=== PATIENT | female | born 1925 | race Caucasian/White ===

== ENCOUNTER 2016-08-29 14:02 | Inpatient (IN) | payer MEDICARE, SELFPAY ==
--- NOTE | 2016-08-29 15:22 | DIRPT ---
CLINICAL DATA: Pain and swelling, status post fall. Bruising. EXAM: LEFT FOOT - COMPLETE 3+ VIEW COMPARISON: None. FINDINGS: There is a significantly displaced/comminuted fracture within the mid portion of the calcaneus, with extension to the superior, inferior and anterior cortical margins, and with suspected involvement of the sustentacular talus. The overlying talus appears intact. No fracture or dislocation identified within the midfoot or forefoot. IMPRESSION: Significantly displaced/comminuted fracture of the calcaneus, as detailed above. Would consider CT for more definitive fracture characterization. Electronically Signed By: Heath Johnson M.D. On: 08/29/2016 15:20
--- NOTE | 2016-08-29 15:24 | DIRPT ---
CLINICAL DATA: Pain status post fall, bruising and swelling. EXAM: LEFT ANKLE COMPLETE - 3+ VIEW COMPARISON: None. FINDINGS: There is a significantly displaced/comminuted fracture of the calcaneus, with extension to the superior, inferior and anterior cortical margins. Also suspect involvement of the sustentacular talus. Overlying talus appears intact. Associated joint effusion noted. Ankle mortise is symmetric. Distal tibia and fibula appear intact and well aligned. IMPRESSION: Significantly displaced/comminuted fracture of the calcaneus, as detailed above. Would consider CT for more definitive fracture characterization. Associated joint effusion. Electronically Signed By: Heath Johnson M.D. On: 08/29/2016 15:22
--- NOTE | 2016-08-29 18:19 | EDPRACDOC ---
- History of Present Illness HPI: ALSO STATES SHE IS CONFUSED AFTER THE FALL AND HITTING HER HEAD. <Srini Lara Rene - Last Filed: 08/29/16 20:17> - General Information Information Source: Patient Mode of Arrival: Ambulance - History of Present Illness Onset: today HPI: C/o mechanical fall a few hrs ago off porch onto concrete on left side, with pain in left ribs, left ankle and foot. Also states she hit her head and has some confusion now, but denies LOC, cp, sob, N/V. Med hx = arthritis, acid reflux, CVA 10 yrs ago. No anticoags. Ankle Problem Location: Reports: Left Mechanism: Reports: Unknown Circumstances: Reports: Fall Able to Bear Weight: No Pain Severity: Reports: Severe Associated Signs & Symptoms: Reports: Swelling, Foot Pain, Other (ankle pain) <Jon Atkins - Last Filed: 08/29/16 23:58> - General Information Chief Complaint: Ankle Pain Stated Complaint: LEFT ANKLE PAIN Home Medications: Home Medications Raloxifene [Evista] 60 mg PO DAILY 05/17/13 Tramadol-Acetaminophen [Ultracet 37.5/325] 1 tabs PO TID PRN 05/17/13 Multivit-Min/FA/Lycopene/Lut [Centrum Silver Tablet] 1 tab PO DAILY 05/23/13 Alendronate Sodium [Fosamax] 70 mg PO FR 08/14/16 Bisacodyl [Women's Laxative] 5 - 15 mg PO HS PRN 08/14/16 Celecoxib (anti-inflammatory) [Celebrex] 200 mg PO BID 08/14/16 Dicyclomine HCl [Bentyl] 20 mg PO Q6H PRN #30 tab 08/14/16 Ondansetron [Zofran Odt] 4 mg PO TID PRN #10 tab.rapdis 08/14/16 Ranitidine HCl 300 mg PO DAILY #30 tablet 08/14/16 Naproxen Sodium [Aleve] 220 mg PO BID PRN 08/29/16 Allergies/Adverse Reactions: Allergies Allergy/AdvReac Type Severity Reaction Status Date / Time codeine [Codeine] Allergy Mild Nausea only Verified 08/29/16 14:47 morphine Allergy Mild NAUSEA,H/A Verified 08/29/16 14:47 promethazine Allergy Nausea/Vomi Verified 08/29/16 14:47 ting sucralfate [From Carafate] Allergy Nausea/Vomi Verified 08/29/16 14:47 ting - Treatment Prior to ED Arrival Reported Medications/Treatment [facility] Treatment BLS Comment pillow splint to left foot <Srini Lara - Last Filed: 08/29/16 20:17> - Treatment Prior to ED Arrival Reported Medications/Treatment [facility] Treatment BLS Comment pillow splint to left foot <Jno Atkins - Last Filed: 08/29/16 23:58> ED Past Medical History - History Reviewed Yes Nurses notes reviewed and agree except as marked - Patient Medical History Neurological History: Reports: Cerebrovascular Accident Cardiac History: Reports: Hypertension Musculoskeletal History: Reports: Arthritis Psychological History: Denies: Depression Systemic History: Denies: Cancer Surgical History: Reports: Hysterectomy, Tonsillectomy/Adnoidectomy - Social Medical History Smoking Status: Never smoker <Jon Atkins - Last Filed: 08/29/16 23:58> EDM Review of Systems - Review of Systems ROS Negative Except as Marked: Yes All systems reviewed and were negative except as marked Neurological: Other (confusion) Musculoskeletal: Ankle (left ankle pain), Ribs (left rib pain), Other (hit head in fall) <Jon Atkins - Last Filed: 08/29/16 23:58> - Physical Exam Last recorded Vital Signs: Last Vital Signs Temp 97.8 F 08/29/16 14:49 Pulse 97 08/29/16 14:49 Resp 20 08/29/16 14:49 BP Pulse Ox 94 08/29/16 14:49 Oxygen Pulse Oxygen Saturation 94 O2 Device Room Air Oxygen Flow Rate Fraction of Inspired Oxygen ( FIO2) <Srini Lara - Last Filed: 08/29/16 20:17> - Physical Exam Constitutional: Alert Oriented to: Time, Person, Place Last recorded Vital Signs: Last Vital Signs Temp 97.8 F 08/29/16 14:49 Pulse 97 08/29/16 14:49 Resp 20 08/29/16 14:49 BP Pulse Ox 94 08/29/16 14:49 Oxygen Pulse Oxygen Saturation 94 O2 Device Room Air Oxygen Flow Rate Fraction of Inspired Oxygen ( FIO2) - HEENT Head: Swelling (occipital) Eye Exam: negative: Conjunctival Injection, Scleral Icterus Oropharynx: negative: Drooling TMJ: Normal Nose: No Symptoms Reported Neck: Normal - Respiratory/Cardiovascular Respiratory: Normal - CTA Cardiovascular: Normal - GI Tenderness: Non tender - Musculoskeletal Back: Normal Extremities: Pedal Pulse, Other (left ankle swollen, ecchymosis) - Integumentary Skin: Normal - Neurologic Mood Description: Normal Thought: Coherent Perception: Other (some confusion post fall) <Jon Atkins - Last Filed: 08/29/16 23:58> ED Ankle Problem Phys Exam - Musculoskeletal Ankle: Swelling, Deformity, Limited ROM, Severe Tenderness Achilles Tendon: Normal Knee: Normal Lower Leg: Normal Foot: Swelling, Deformity, Ecchymosis, Limited ROM, Severe Tenderness Distal Function/Circulation: Normal - Integumentary Skin: Ecchymosis. negative: Abrasion, Open Fracture Laceration Type: negative: Avulsion, Flap, Linear, Jagged, Stellate, Other - Other Exam Other Exam Findings: pulses and sensation intact distal to trauma left ankle <WilbertJon Grimm - Last Filed: 08/29/16 23:58> ED Procedures - Splinting 1st splint Location: left ankle Hand-Made Type: orthoglass Splint: posterior walking Pre-Proc Neuro Vasc Exam: normal Post-Proc Neuro Vasc Exam: normal, unchanged from pre-exam <Jon Atkins - Last Filed: 08/29/16 23:58> - Results 08/29/16 20:23 08/29/16 20:23 - Diagnostic Imaging Ankle Image interpreted by: Radiologist EXAM: LEFT ANKLE COMPLETE - 3+ VIEW COMPARISON: None. FINDINGS: There is a significantly displaced/comminuted fracture of the calcaneus, with extension to the superior, inferior and anterior cortical margins. Also suspect involvement of the sustentacular talus. Overlying talus appears intact. Associated joint effusion noted. Ankle mortise is symmetric. Distal tibia and fibula appear intact and well aligned. IMPRESSION: Significantly displaced/comminuted fracture of the calcaneus, as detailed above. Would consider CT for more definitive fracture characterization. Associated joint effusion. Electronically Signed By: Heath Johnson M.D. On: 08/29/2016 15:22 Foot Image interpreted by: Radiologist EXAM: LEFT FOOT - COMPLETE 3+ VIEW COMPARISON: None. FINDINGS: There is a significantly displaced/comminuted fracture within the mid portion of the calcaneus, with extension to the superior, inferior and anterior cortical margins, and with suspected involvement of the sustentacular talus. The overlying talus appears intact. No fracture or dislocation identified within the midfoot or forefoot. IMPRESSION: Significantly displaced/comminuted fracture of the calcaneus, as detailed above. Would consider CT for more definitive fracture characterization. Electronically Signed By: Heath Johnson M.D. On: 08/29/2016 15:20 Head Image interpreted by: Radiologist EXAM: CT HEAD WITHOUT CONTRAST TECHNIQUE: Contiguous axial images were obtained from the base of the skull through the vertex without intravenous contrast. COMPARISON: Head CT 04/04/2010. FINDINGS: She well-defined focus of low attenuation in the left putamen, compatible with an old lacunar infarct (similar to the prior examination). Patchy and confluent areas of decreased attenuation are noted throughout the deep and periventricular white matter of the cerebral hemispheres bilaterally, compatible with chronic microvascular ischemic disease. Mild cerebral atrophy. No acute intracranial abnormalities. Specifically, no evidence of acute intracranial hemorrhage, no definite findings of acute/subacute cerebral ischemia, no mass, mass effect, hydrocephalus or abnormal intra or extra-axial fluid collections. Visualized paranasal sinuses and mastoids are well pneumatized. No acute displaced skull fractures are identified. IMPRESSION: 1. No evidence of significant acute traumatic injury to the skull or brain. 2. 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 3. Mild cerebral atrophy Electronically Signed By: Balaji Campoverde M.D. On: 08/29/2016 20:17 - Additional Information Additional Information: Discussed pt's left ankle fx with Dr Segura who stated that we do not usually handle such a fx here at [place] [facility], and that if compartments are soft, and pt pain can be managed, then a well padded posterior splint will suffice with f/ up. <Jon Atkins - Last Filed: 08/29/16 23:58> <Srini Lara - Last Filed: 08/29/16 20:17> - Departure Disposition: Admit IP To This Hospital Decision to Admit Time: 20:33 (Dr Olivier) Decision to admit date: 08/29/16 Decision to admit: from ED <Jon Atkins - Last Filed: 08/29/16 23:58> - Departure Condition: Stable Final Diagnosis: Post concussive syndrome Calcaneal fracture Qualifiers: Encounter type: initial encounter Calcaneus location: unspecified portion of calcaneus Fracture type: closed Fracture alignment: displaced Laterality: left Qualified Code(s): S92.002A - Unspecified fracture of left calcaneus, initial encounter for closed fracture
[2016-08-29] MEDS ORDERED: HYDROmorphone 1 MG INJECTION IV ONE (20:02)
[2016-08-29] MEDS ORDERED: ONDANSETRON HCL 4 MG/2 ML VIAL IV ONE ×3 (20:02→21:37)
--- NOTE | 2016-08-29 20:20 | DIRPT ---
CLINICAL DATA: 89-year-old female with history of trauma from a fall with injury to the left side of the head. No loss of consciousness. EXAM: CT HEAD WITHOUT CONTRAST TECHNIQUE: Contiguous axial images were obtained from the base of the skull through the vertex without intravenous contrast. COMPARISON: Head CT 04/04/2010. FINDINGS: She well-defined focus of low attenuation in the left putamen, compatible with an old lacunar infarct (similar to the prior examination). Patchy and confluent areas of decreased attenuation are noted throughout the deep and periventricular white matter of the cerebral hemispheres bilaterally, compatible with chronic microvascular ischemic disease. Mild cerebral atrophy. No acute intracranial abnormalities. Specifically, no evidence of acute intracranial hemorrhage, no definite findings of acute/subacute cerebral ischemia, no mass, mass effect, hydrocephalus or abnormal intra or extra-axial fluid collections. Visualized paranasal sinuses and mastoids are well pneumatized. No acute displaced skull fractures are identified. IMPRESSION: 1. No evidence of significant acute traumatic injury to the skull or brain. 2. 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 3. Mild cerebral atrophy Electronically Signed By: Balaji Campoverde M.D. On: 08/29/2016 20:17
[2016-08-29 20:36] LABS: AUTOMATED BASOPHIL 0.4 % (0-2); AUTOMATED EOSINOPHIL 1.4 % (0-5); AUTOMATED LYMPH 10.6 % (17-44); AUTOMATED MONOCYTE 7.9 % (3-10); AUTOMATED NEUTROPHIL 79.7 % (45-76); MPV 7.3 fL (7.4-10.4)
[2016-08-29 20:46] LABS: BLOOD UREA NITROGEN 12 MG/DL (7-17); CALCIUM 9.5 MG/DL (8.4-10.2); CALCULATED OSMOLALITY 266 MOs/Kg (270-290); CHLORIDE 101 mEq/L (98-107); GLUCOSE 107 MG/DL (70-99); SODIUM LEVEL 138 mEq/L (137-146)
--- NOTE | 2016-08-29 21:36 | DIRPT ---
CLINICAL DATA: 89-year-old female with fall and left rib pain. EXAM: LEFT RIBS AND CHEST - 3+ VIEW COMPARISON: Chest radiograph dated 08/03/2015 FINDINGS: Left lung base linear atelectasis/ scarring. The lungs are clear. No focal consolidation, pleural effusion, or pneumothorax. The cardiac silhouette is within normal limits. No rib fracture identified. IMPRESSION: Negative. Electronically Signed By: Jermain Gupta M.D. On: 08/29/2016 21:33
[2016-08-29] MEDS ORDERED: LABETALOL 20 MG/4 ML SYRINGE IV ONE (21:49)
[2016-08-29] MEDS ORDERED: HYDROmorphone 1 MG INJECTION IV PRN (21:50)
--- NOTE | 2016-08-29 21:53 | HISTPHYS ---
- Chief Complaint fall, pain - History of Present Illness PRIMARY CARE PROVIDER: Sara Merino HPI: The patient is an 89 yo woman who lives alone, who presents after a fall. She went on the back porch to throw something out, and she lost her balance and fell off the porch onto the hard dirt and hit her head. She does not remember exactly what happened but thinks her left head and the left side of her body hit. She had pain and could not walk. She crawled to her home and called for help. She felt dizzy right before she fell. Onset: today. Duration:constant. Location: Greatest pain is in her left foot. Radiation: none. Character: 06/09. Unable to describe. Alleviated by: Nothing. Exacerbated by: moving and weight bearing. Associated Symptoms: No bleeding. No numbness. Left foot pain and weakness after the fall. No fever or chills. Arthritis in back and hip chronically, has been worse lately. She had been limping because her right hip hurts (worse over several weeks). Mild rash on back and mild itching. Chest pains sometimes and palpitations. Headache. Dizziness. Treatments: none at home except usual medications. Chest pain: Onset: has it intermittently and had some today. Duration: intermittent. Location: substernal. Radiation: sometimes to arm. Character: 04/09. Dull. Alleviated by nothing. Exacerbated by exertion sometimes. Associated symptoms: No diaphoresis. No shortness of breath. Nausea. Palpitations. Has had a stomach virus x several days and vomited. Nausea. Had stomach cramping. No dysuria or hematuria. Treatments: none. - Medical History Cardiac History: Reports: Hypertension GI/ History: Reports: Gastroesophageal Reflux, PMH GI Yes/No Other (Urinary incontinence.) Musculoskeletal History: Reports: Arthritis Systemic History: Denies: Cancer Neurological History: Reports: Cerebrovascular Accident (before 2012, does not remember when.) Psychological History: Denies: Depression - Surgical History Reports: Hysterectomy, Tonsillectomy/Adnoidectomy, Other (Abdominal surgery x3 for bowel obstruction.) - Medictions/Allergies Allergies codeine [Codeine] Allergy (Mild, Verified 08/29/16 14:47) Nausea only morphine Allergy (Mild, Verified 08/29/16 14:47) NAUSEA,H/A promethazine Allergy (Verified 08/29/16 14:47) Nausea/Vomiting sucralfate [From Carafate] Allergy (Verified 08/29/16 14:47) Nausea/Vomiting Current Medication List: Reviewed Home Medications Raloxifene [Evista] 60 mg PO DAILY 05/17/13 Tramadol-Acetaminophen [Ultracet 37.5/325] 1 tabs PO TID PRN 05/17/13 Multivit-Min/FA/Lycopene/Lut [Centrum Silver Tablet] 1 tab PO DAILY 05/23/13 Alendronate Sodium [Fosamax] 70 mg PO FR 08/14/16 Bisacodyl [Women's Laxative] 5 - 15 mg PO HS PRN 08/14/16 Celecoxib (anti-inflammatory) [Celebrex] 200 mg PO BID 08/14/16 Dicyclomine HCl [Bentyl] 20 mg PO Q6H PRN #30 tab 08/14/16 Ondansetron [Zofran Odt] 4 mg PO TID PRN #10 tab.rapdis 08/14/16 Ranitidine HCl 300 mg PO DAILY #30 tablet 08/14/16 Naproxen Sodium [Aleve] 220 mg PO BID PRN 08/29/16 - Family History Reports: Cancer (Brother: stomach cancer. Sister: non-Hodgkin's lymphoma), Cardiac Disorders (Mother: heart disease.), Respiratory Disorders (Mother: asthma), Other (Mother: diverticulitis) - Social History Lives: Alone Smoking Status: Never smoker Social History: Reports: Alcohol Use (rare). Denies: Substance Use Disorder - Review of Systems GENERAL: No Fever, chills, or diaphoresis. Positive for fatigue/malaise. HEENT: No ear pain or discharge. No nasal discharge or bleeding. No throat pain or swelling. No eye pain or eye redness. RESPIRATORY: No cough, wheezing, or shortness of breath. CARDIOVASCULAR: Chest pain and palpitations. GI: Has had a stomach virus x several days and vomited. Nausea. Had stomach cramping. No diarrhea, constipation, or bloody stool. NEUROLOGICAL: Headache and dizziness. No focal weakness. INTEGUMENT: Mild rash on back and mild itching. No lesions. LYMPHATIC SYSTEM: no lymph node swelling or pain. MUSCULOSKELETAL: Except as per HPI, no new pain or joint swelling. GENITOURINARY: No dysuria or hematuria. ENDOCRINE: No polyuria or polydipsia. HEME: No chronic anemia, bleeding, or easy bruising. - Physical Exam Vital Signs: Initial Vitals Temperature 97.8 F 08/29/16 14:49 Pulse Rate 97 08/29/16 14:49 Respiratory Rate 20 08/29/16 14:49 Pulse Oxygen Saturation 94 08/29/16 14:49 Vital Signs - 24 hr 08/29/16 08/29/16 08/29/16 14:49 20:00 20:34 Temperature 97.8 F Pulse Rate 97 84 86 Respiratory 20 20 20 Rate Blood Pressure 222/96 H 212/93 H Pulse Oxygen 94 96 92 Saturation 08/29/16 08/29/16 08/29/16 22:00 22:41 22:45 Temperature Pulse Rate 88 84 84 Respiratory 18 18 18 Rate Blood Pressure 154/82 206/90 H 206/90 H Pulse Oxygen 98 96 96 Saturation 08/29/16 08/29/16 23:25 23:26 Temperature 97.7 F Pulse Rate 70 Respiratory 18 Rate Blood Pressure 193/63 H 210/92 H Pulse Oxygen 97 Saturation Weight: 57.7 kg Height: 5'4" BMI: 21.5 - Other Exam Other Exam Findings: GENERAL: Ill-appearing, well nourished, in acute distress. HEENT: Normocephalic, atraumatic; pupils equal and round. Nares patent, without discharge or bleeding. No oropharyngeal lesions or erythema. Mucous membranes are dry. NECK: is supple, no masses, trachea midline. RESPIRATORY: Clear to auscultation bilaterally. Chest wall movements are symmetric. No use of accessory muscles to breathe. No wheezing, rales, rhonchi. CARDIOVASCULAR: Normal S1, S2. No rubs, or gallops. PMI non-displaced. Carotids : no carotid bruits. No bradycardia or tachycardia. DP pulses 2+ bilaterally. GI: soft, nontender, non-distended, normal active bowel sounds. No hepatosplenomegaly. INTEGUMENT: Clean, dry, and intact. No rashes. No lesions. MUSCULOSKELETAL: No cyanosis. No clubbing. Edema: none bilaterally. Left lower extremity in bandage and brace. Able to move toes. NEUROLOGICAL: Cranial nerves 2-12 grossly intact. Motor 4/5 throughout except left lower extremity not tested due to fracture. Reflexes: 2+ bilaterally. Babinski: toes downgoing on right; unable to test on left. Intact Finger to nose. Sensory grossly intact to light touch. Intact rapid alternating movements bilaterally. No pronator drift. PSYCHIATRIC: Oriented to person and place. Intermittently somnolent. LYMPHATIC: No cervical lymphadenopathy. No supraclavicular lymphadenopathy. - Lab Results Laboratory Tests 08/29/16 08/29/16 08/29/16 20:23 20:23 21:30 WBC 9.3 RBC 4.88 Hgb 14.9 Hct 44.5 MCV 91 MCH 30.6 MCHC 33.6 RDW 13.9 Plt Count 285 MPV 7.3 L Neut % (Auto) 79.7 H Lymph % (Auto) 10.6 L Vance % (Auto) 7.9 Eos % (Auto) 1.4 Baso % (Auto) 0.4 Absolute Neuts (auto) 7.35 Absolute Lymphs (auto) 0.93 Sodium 138 Potassium 3.8 Chloride 101 Carbon Dioxide 28 Anion Gap 13 BUN 12 Creatinine 0.60 Estimated GFR (MDRD) > 60 Glucose 107 H Calculated Osmolality 266 L Calcium 9.5 Total Bilirubin 0.8 AST 37 H ALT 39 Alkaline Phosphatase 68 Creatine Kinase Myoglobin Troponin I Total Protein 7.0 Albumin 4.1 Triglycerides Cholesterol LDL Cholesterol, Calc VLDL Cholesterol, Calc HDL Cholesterol Cholesterol/HDL Ratio Urine Color Yellow Urine Clarity Clear Urine pH 6.0 Ur Specific [place] 1.005 Urine Protein Neg Urine Glucose (UA) Neg Urine Ketones Neg Urine Occult Blood Neg Urine Nitrite Neg Urine Bilirubin Neg Urine Urobilinogen <2.0 Ur Leukocyte Esterase Neg Urine RBC 0-2 Urine WBC 0-2 Ur Epithelial Cells Occ Urine Bacteria Few Hyaline Casts 0-2 Urine Mucus Mod H - Diagnostic Findings EK beats per minute. Sinus rhythm with first-degree AV block. Reviewed EKG personally. EXAM: LEFT FOOT - COMPLETE 3+ VIEW COMPARISON: None. FINDINGS: There is a significantly displaced/comminuted fracture within the mid portion of the calcaneus, with extension to the superior, inferior and anterior cortical margins, and with suspected involvement of the sustentacular talus. The overlying talus appears intact. No fracture or dislocation identified within the midfoot or forefoot. IMPRESSION: Significantly displaced/comminuted fracture of the calcaneus, as detailed above. Would consider CT for more definitive fracture characterization. EXAM: LEFT ANKLE COMPLETE - 3+ VIEW COMPARISON: None. FINDINGS: There is a significantly displaced/comminuted fracture of the calcaneus, with extension to the superior, inferior and anterior cortical margins. Also suspect involvement of the sustentacular talus. Overlying talus appears intact. Associated joint effusion noted. Ankle mortise is symmetric. Distal tibia and fibula appear intact and well aligned. IMPRESSION: Significantly displaced/comminuted fracture of the calcaneus, as detailed above. Would consider CT for more definitive fracture characterization. Associated joint effusion. EXAM: CT HEAD WITHOUT CONTRAST TECHNIQUE: Contiguous axial images were obtained from the base of the skull through the vertex without intravenous contrast. COMPARISON: Head CT 04/04/2010. FINDINGS: She well-defined focus of low attenuation in the left putamen, compatible with an old lacunar infarct (similar to the prior examination). Patchy and confluent areas of decreased attenuation are noted throughout the deep and periventricular white matter of the cerebral hemispheres bilaterally, compatible with chronic microvascular ischemic disease. Mild cerebral atrophy. No acute intracranial abnormalities. Specifically, no evidence of acute intracranial hemorrhage, no definite findings of acute/subacute cerebral ischemia, no mass, mass effect, hydrocephalus or abnormal intra or extra-axial fluid collections. Visualized paranasal sinuses and mastoids are well pneumatized. No acute displaced skull fractures are identified. IMPRESSION: 1. No evidence of significant acute traumatic injury to the skull or brain. 2. 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 3. Mild cerebral atrophy. EXAM: LEFT RIBS AND CHEST - 3+ VIEW COMPARISON: Chest radiograph dated 08/03/2015 FINDINGS: Left lung base linear atelectasis/ scarring. The lungs are clear. No focal consolidation, pleural effusion, or pneumothorax. The cardiac silhouette is within normal limits. No rib fracture identified. IMPRESSION: Negative. - Assessment (1) Hypertensive urgency I16.0 - HYPERTENSIVE URGENCY Acute Present on Admission: Yes Does not normally take blood pressure medications at home. Appears that she does have hypertension. Plan: Start beta donald. IV hydralazine prn. Add further medication as needed. (2) Chest pain R07.9 - CHEST PAIN, UNSPECIFIED Acute Present on Admission: Yes Patient eventually did admit that she had some chest pain intermittently and had some while waiting in the emergency department waiting room. She is chest pain-free on admission. Rule out myocardial infarction. Plan: Obtain cardiac enzymes x 3. Place patient on telemetry. Give patient oxygen, aspirin. Give nitroglycerin as needed for chest pain. Consider giving statin. No stress test has not been ordered at this time. Consider stress test depending on patient's hospital course. May need an outpatient stress test at some point in the future. (3) Closed displaced fracture of left calcaneus S92.002A - UNSP FRACTURE OF LEFT CALCANEUS, INIT FOR CLOS FX Acute Present on Admission: Yes Qualifiers: Encounter type: initial encounter Displaced fracture. Discussed case with Dr. Segura, who will consult. Plan: Management per orthopedic surgeon. Patient is unable to ambulate at all. She lives alone and does not have family in the area. She may need extensive physical therapy and short term rehabilitation. (4) Concussion S06.0X9A - CONCUSSION W LOSS OF CONSCIOUSNESS OF UNSP DURATION, INIT Acute Present on Admission: Yes Qualifiers: Encounter type: initial encounter Loss of consciousness presence/duration: with LOC of unspecified duration Qualified Code(s): S06.0X9A - Concussion with loss of consciousness of unspecified duration, initial encounter Patient fell and hit her head today. Has had some altered mental status. Has significant headache. Plan: Monitor neurologic status. (5) Dizziness R42 - DIZZINESS AND GIDDINESS Acute Present on Admission: Yes Plan: Monitor neuro exam. (6) Headache R51 - HEADACHE Acute Present on Admission: Yes Headache after fall 08/29/16; hit her head during the fall. Head CT negative. Plan: IV pain medication prn. Case Care Discussed with: Patient, Nursing Staff
[2016-08-29 21:54] LABS: LEUKOCYTES/URINE NEG (NEGATIVE); NITRITE/URINE NEG (NEGATIVE); RBC/URINE 0-2 (0-5); URINE OCCULT BLOOD NEG (NEG/TRACE); WBC/URINE 0-2 (0-5)
[2016-08-29] MEDS ORDERED: LORAZEPAM 2 MG/ML VIAL IV ONE (22:26)
[2016-08-29] MEDS ORDERED: LORAZEPAM 2 MG/ML VIAL IV PRN (22:26)
[2016-08-29] MEDS ORDERED: ASPIRIN (CHEWABLE) 81 MG TAB PO ONE (22:27)
[2016-08-29] MEDS ORDERED: NITROGLYCERINE 0.4 MG TAB SL PRN (22:28)
[2016-08-29] MEDS ORDERED: DICYCLOMINE 20 MG TAB PO PRN (22:50)
[2016-08-29] MEDS ORDERED: BISACODYL PO PRN (22:50)
[2016-08-29] MEDS ORDERED: SENNA CONCENTRATE TAB PO PRN (22:51)
[2016-08-29] MEDS ORDERED: GUAIFEN 100 MG-DEXTROMETH 10 MG PER 5 ML PO PRN (22:51)
[2016-08-29] MEDS ORDERED: ACETAMINOPHEN 325 MG SUPP PR PRN (22:51)
[2016-08-29] MEDS ORDERED: Docusate Sodium 100 MG CAP PO PRN (22:51)
[2016-08-29] MEDS ORDERED: SIMETHICONE 80 MG TAB PO PRN (22:51)
[2016-08-29] MEDS ORDERED: BENZONATATE 100 MG PERLES PO PRN (22:51)
[2016-08-29] MEDS ORDERED: CARVEDILOL 3.125 MG TAB PO SCH (23:00)
[2016-08-29] MEDS ORDERED: Pharmacy Order Set Alert SCH (23:00)
[2016-08-29] MEDS ORDERED: BISACODYL 5 MG TAB PO PRN (23:26)
[2016-08-30] MEDS: ENOXAPARIN 40 MG/0.4 ML PFS SQ SCH ×2 (00:23→20:15)
[2016-08-30] MEDS ORDERED: CHAPSTICK LIP BALM ONE (00:26)
[2016-08-30 02:12] LABS: CPK TOTAL WITH POSSIBLE MB 121 IU/L (30-134)
[2016-08-30] MEDS ORDERED: Vaccine Screening Complete SCH (03:00)
[2016-08-30] MEDS: hydrALAZINE 20 MG/ML VIAL IV PRN (05:08)
[2016-08-30 05:40] LABS: MPV 7.2 fL (7.4-10.4)
[2016-08-30 05:50] LABS: CPK TOTAL WITH POSSIBLE MB 111 IU/L (30-134); LDL (calc.) 74.2 MG/DL (<100); VLDL (calc.) 21.8 MG/DL (5-40)
[2016-08-30 05:54] LABS: BLOOD UREA NITROGEN 12 MG/DL (7-17); CALCIUM 8.8 MG/DL (8.4-10.2); CALCULATED OSMOLALITY 258 MOs/Kg (270-290); CHLORIDE 98 mEq/L (98-107); GLUCOSE 99 MG/DL (70-99); SODIUM LEVEL 134 mEq/L (137-146)
[2016-08-30] MEDS ORDERED: LISINOPRIL 5 MG TAB PO ONE (06:26)
[2016-08-30] MEDS ORDERED: METOPROLOL 5 MG/5 ML SDV IV ONE (06:28)
[2016-08-30] MEDS: ONDANSETRON HCL 4 MG/2 ML VIAL IV PRN (06:56)
[2016-08-30] MEDS: ACETAMINOPHEN 325 MG/TAB TABLET PO PRN ×2 (06:59→22:17)
[2016-08-30] MEDS: CARVEDILOL 3.125 MG TAB PO SCH ×2 (08:33→20:14)
[2016-08-30] MEDS: LISINOPRIL 5 MG TAB PO SCH (08:33)
[2016-08-30] MEDS ORDERED: [UNRECOGNIZED DRUG - OTHER] PO SCH (09:00)
[2016-08-30] MEDS ORDERED: RANITIDINE HCL 300 MG PO SCH (09:00)
--- NOTE | 2016-08-30 10:54 | PCM.ORTHCO ---
Consultation Date: 08/30/16 - History of Present Illness Mrs Lee is an 89-year-old female presented to [facility] ER after falling off of her back porch. She landed directly onto her left lower extremity. She did also hit her head. She did not lose consciousness. She presented to the ER where she was found to have a significantly displaced left calcaneus fracture. She is unable to bear weight or ambulate due to the pain. She has been admitted to [facility] for pain control and retirement facility placement. 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 Denies: Depression, Substance Use Disorder Neurological History: Reports: Cerebrovascular Accident (before 2012, does not remember when.) Past Surgical History: Reports: Hysterectomy, Tonsillectomy/Adnoidectomy, Other (Abdominal surgery x3 for bowel obstruction.) Allergies codeine [Codeine] Allergy (Mild, Verified 08/29/16 14:47) Nausea only morphine Allergy (Mild, Verified 08/29/16 14:47) NAUSEA,H/A promethazine Allergy (Verified 08/29/16 14:47) Nausea/Vomiting sucralfate [From Carafate] Allergy (Verified 08/29/16 14:47) Nausea/Vomiting Home Medications Raloxifene [Evista] 60 mg PO DAILY 05/17/13 Tramadol-Acetaminophen [Ultracet 37.5/325] 1 tabs PO TID PRN 05/17/13 Multivit-Min/FA/Lycopene/Lut [Centrum Silver Tablet] 1 tab PO DAILY 05/23/13 Alendronate Sodium [Fosamax] 70 mg PO FR 08/14/16 Bisacodyl [Women's Laxative] 5 - 15 mg PO HS PRN 08/14/16 Celecoxib (anti-inflammatory) [Celebrex] 200 mg PO BID 08/14/16 Dicyclomine HCl [Bentyl] 20 mg PO Q6H PRN #30 tab 08/14/16 Ondansetron [Zofran Odt] 4 mg PO TID PRN #10 tab.rapdis 08/14/16 Ranitidine HCl 300 mg PO DAILY #30 tablet 08/14/16 Naproxen Sodium [Aleve] 220 mg PO BID PRN 08/29/16 - Social History Lives: Alone Smoking Status: Never smoker Social History: Reports: Alcohol Use (rare). Denies: Substance Use Disorder - Family History Reports: Cancer (Brother: stomach cancer. Sister: non-Hodgkin's lymphoma), Cardiac Disorders (Mother: heart disease.), Respiratory Disorders (Mother: asthma), Other (Mother: diverticulitis) - Review of Systems Yes All systems reviewed and were negative except as marked Musculoskeletal:: Other (Left foot/heel pain. Left-sided rib pain and left shoulder pain, bruising) - Physical Exam Vital Signs: Initial Vitals Temperature 97.8 F 08/29/16 14:49 Pulse Rate 97 08/29/16 14:49 Respiratory Rate 20 08/29/16 14:49 Pulse Oxygen Saturation 94 08/29/16 14:49 Constitutional: No apparent distress, Alert Oriented to: Time, Person, Place - HEENT Head: Normal - Musculoskeletal Extremities: Other (Examination of the patient's left lower extremity she does have a well-padded posterior splint in place. She is able to flex and extend all toes. No significant pain with passive range of motion of her toes. Subjective sensation to light touch intact distally L4-S1. She has palpable dorsalis pedis and posterior tibial pulses distally. Compartments are soft without evidence of compartment syndrome. Passive range of motion of the left knee 0-120 degrees. No effusion or tenderness. Negative hip logroll test bilaterally for any reproducible pain. Patient does have a small area of ecchymosis and tenderness palpation over the deltoid of the left shoulder. Active range of motion of her left shoulder is limited by pain. She does have full passive range of motion, however painful. Left elbow without tenderness or effusion. No crepitance. Full painless flexion and extension of the left wrist distally. All remaining bony prominences of bilateral upper and lower extremities palpated without tenderness, step-off or deformity) - Diagnostic Findings LEFT FOOT - COMPLETE 3+ VIEW COMPARISON: None. FINDINGS: There is a significantly displaced/comminuted fracture within the mid portion of the calcaneus, with extension to the superior, inferior and anterior cortical margins, and with suspected involvement of the sustentacular talus. The overlying talus appears intact. No fracture or dislocation identified within the midfoot or forefoot. IMPRESSION: Significantly displaced/comminuted fracture of the calcaneus, as detailed above. Would consider CT for more definitive fracture characterization. Electronically Signed By: Heath Johnson M.D. On: 08/29/2016 15:20 - Assessment/Plan (1) Closed displaced fracture of left calcaneus S92.002A - UNSP FRACTURE OF LEFT CALCANEUS, INIT FOR CLOS FX Acute initial encounter intra-articular S92.062A - Displaced intraarticular fracture of left calcaneus, initial encounter for closed fracture Case Care Discussed with: Patient, Consultants, Perforating Machine Operator Plan: 1. Left intra-articular, displaced calcaneus fracture -recommend continue with the well-padded posterior splint. Elevate left leg on 2 pillows. Ice packs to left ankle and foot -no weight-bearing left lower extremity. Will order PT evaluation for gait training with a walker while maintaining weight-bearing restrictions. -pain control -I did speak to patient's outreach and education social worker about scheduling her an outpatient appointment with Dr. Morrison, orthopaedic trauma -agree with temporary retirement facility placement.
--- NOTE | 2016-08-30 11:36 | CAPUEKG ---
[place], [place] Test Date: 2016-08-30 Pat Name: MIRELA GONZALEZ Department: Room: 440 Gender: Female [employer]: : Requested By: Order Number: Reading MD: Umair Fragoso MD Measurements Intervals [place] Rate: 64 P: 76 TN: 280 QRS: 30 QRSD: 82 T: 78 QT: 430 QTc: 443 Interpretive Statements Sinus rhythm with 1st degree AV block Otherwise normal ECG Electronically Signed On 08-30-16 11:35:17 EST by Umair Fragoso MD <[id number] [id number]
[2016-08-30] MEDS ORDERED: Chloraseptic 6 OZ BOT PO PRN (12:07)
--- NOTE | 2016-08-30 12:13 | GENMEDPROG ---
Chief Complaint: Complains of sore throat, sinus congestion, and persistent ankle pain. Notes Reviewed: Yes Events from last night noted and discussed with Clinical Staff Current Medication List: Reviewed Currently: Denies: Cough, Wheezing, SEGURA, SOB, Nausea and Vomiting, Abdominal Pain, Chest Pain DVT Prophylaxis: Yes - Physical Examination Vital Signs and I&O: Last Vital Signs Temp 98.4 F 08/30/16 08:56 Pulse 74 08/30/16 10:28 Resp 18 08/30/16 08:56 BP 160/60 08/30/16 09:41 Pulse Ox 97 08/30/16 10:06 Oxygen Pulse Oxygen Saturation 97 O2 Device Nasal Cannula Oxygen Flow Rate 2 Fraction of Inspired Oxygen ( FIO2) Intake & Output 08/27/16 08/28/16 08/29/16 08/30/16 23:59 23:59 23:59 23:59 Intake Total 480 Output Total 500 Balance -20 Patient's weight 57.47 kg 57.748 kg General: Alert, Oriented x3, Cooperative, Well appearing, Well nourished HEENT: Normal, PERRLA, EOMI Neck: Non-tender, Full range of motion, Normal Trachea alignment. negative: JVD Lymphatics: Normal. negative: Adenopathy Respiratory: Normal - CTA Cardiovascular: Regular rate and rhythm, No Gallops,Rubs/Murmurs GI: Normal bowel sounds, Soft, Non tender, No hepatospenomegaly Extremities/Musculoskeletal: Normal pulses. negative: Tenderness, Swelling Skin: Warm,Dry and Intact, No rashes, No breakdown, No significant lesion Neurological: Normal speech, Strength at 5/5 X4 ext, Normal tone, Cranial nerves 3-12 NL Psych/Mental Status: Appropriate, Normal Affect, Cooperative Lab/DI/Studies Reviewed: Laboratory Results - last 24 hr 08/29/16 08/29/16 08/29/16 20:23 20:23 21:30 WBC 9.3 RBC 4.88 Hgb 14.9 Hct 44.5 MCV 91 MCH 30.6 MCHC 33.6 RDW 13.9 Plt Count 285 MPV 7.3 L Neut % (Auto) 79.7 H Lymph % (Auto) 10.6 L [place] % (Auto) 7.9 Eos % (Auto) 1.4 Baso % (Auto) 0.4 Absolute Neuts (auto) 7.35 Absolute Lymphs (auto) 0.93 Sodium 138 Potassium 3.8 Chloride 101 Carbon Dioxide 28 Anion Gap 13 BUN 12 Creatinine 0.60 Estimated GFR (MDRD) > 60 Glucose 107 H Calculated Osmolality 266 L Calcium 9.5 Total Bilirubin 0.8 AST 37 H ALT 39 Alkaline Phosphatase 68 Creatine Kinase Myoglobin Troponin I Total Protein 7.0 Albumin 4.1 Triglycerides Cholesterol LDL Cholesterol, Calc VLDL Cholesterol, Calc HDL Cholesterol Cholesterol/HDL Ratio Urine Color Yellow Urine Clarity Clear Urine pH 6.0 Ur Specific [place] 1.005 Urine Protein Neg Urine Glucose (UA) Neg Urine Ketones Neg Urine Occult Blood Neg Urine Nitrite Neg Urine Bilirubin Neg Urine Urobilinogen <2.0 Ur Leukocyte Esterase Neg Urine RBC 0-2 Urine WBC 0-2 Ur Epithelial Cells Occ Urine Bacteria Few Hyaline Casts 0-2 Urine Mucus Mod H 08/30/16 08/30/16 08/30/16 01:45 05:22 05:22 WBC RBC Hgb Hct MCV MCH MCHC RDW Plt Count MPV Neut % (Auto) Lymph % (Auto) [place] % (Auto) Eos % (Auto) Baso % (Auto) Absolute Neuts (auto) Absolute Lymphs (auto) Sodium Potassium Chloride Carbon Dioxide Anion Gap BUN Creatinine Estimated GFR (MDRD) Glucose Calculated Osmolality Calcium Total Bilirubin AST ALT Alkaline Phosphatase Creatine Kinase 121 111 Myoglobin 99.5 82.5 Troponin I < 0.01 < 0.01 Total Protein Albumin Triglycerides 109 Cholesterol 149 LDL Cholesterol, Calc 74.2 VLDL Cholesterol, Calc 21.8 HDL Cholesterol 53.0 Cholesterol/HDL Ratio 2.8 Urine Color Urine Clarity Urine pH Ur Specific [place] Urine Protein Urine Glucose (UA) Urine Ketones Urine Occult Blood Urine Nitrite Urine Bilirubin Urine Urobilinogen Ur Leukocyte Esterase Urine RBC Urine WBC Ur Epithelial Cells Urine Bacteria Hyaline Casts Urine Mucus 08/30/16 08/30/16 08/30/16 05:22 05:22 07:20 WBC 6.6 RBC 4.39 Hgb 13.4 D Hct 40.0 MCV 91 MCH 30.7 MCHC 33.6 RDW 14.1 Plt Count 251 MPV 7.2 L Neut % (Auto) Lymph % (Auto) [place] % (Auto) Eos % (Auto) Baso % (Auto) Absolute Neuts (auto) Absolute Lymphs (auto) Sodium 134 L Potassium 4.2 Chloride 98 Carbon Dioxide 28 Anion Gap 12 BUN 12 Creatinine 0.50 L Estimated GFR (MDRD) > 60 Glucose 99 Calculated Osmolality 258 L Calcium 8.8 Total Bilirubin AST ALT Alkaline Phosphatase Creatine Kinase Myoglobin Troponin I < 0.01 Total Protein Albumin Triglycerides Cholesterol LDL Cholesterol, Calc VLDL Cholesterol, Calc HDL Cholesterol Cholesterol/HDL Ratio Urine Color Urine Clarity Urine pH Ur Specific [place] Urine Protein Urine Glucose (UA) Urine Ketones Urine Occult Blood Urine Nitrite Urine Bilirubin Urine Urobilinogen Ur Leukocyte Esterase Urine RBC Urine WBC Ur Epithelial Cells Urine Bacteria Hyaline Casts Urine Mucus - Assessment (1) Hypertensive urgency Acute I16.0 - HYPERTENSIVE URGENCY Comment/Plan: Blood pressures improving. Continue medications and control pain. (2) Closed displaced fracture of left calcaneus Acute S92.002A - UNSP FRACTURE OF LEFT CALCANEUS, INIT FOR CLOS FX Qualifiers: Encounter type: initial encounter Fracture morphology: intra-articular Qualified Code(s): S92.062A - Displaced intraarticular fracture of left calcaneus, initial encounter for closed fracture Comment/Plan: Pain control. Add ultracet. Appreciate Orthopedic's evaluation. Planning short-term long term facility placement (3) Concussion Acute S06.0X9A - CONCUSSION W LOSS OF CONSCIOUSNESS OF UNSP DURATION, INIT Qualifiers: Encounter type: initial encounter Loss of consciousness presence/duration: with LOC of unspecified duration Qualified Code(s): S06.0X9A - Concussion with loss of consciousness of unspecified duration, initial encounter Comment/Plan: Appears stable currently. Monitor (4) Dizziness Acute R42 - DIZZINESS AND GIDDINESS Comment/Plan: Continue medications. (5) Headache Acute R51 - HEADACHE Qualifiers: Headache type: unspecified Headache chronicity pattern: acute headache Intractability: not intractable Qualified Code(s): R51 - Headache Comment/Plan: Fell yesterday. P.r.n. analgesics. Head CT is negative. (6) Chest pain Acute R07.9 - CHEST PAIN, UNSPECIFIED Qualifiers: Chest pain type: other chest pain Qualified Code(s): R07.89 - Other chest pain; R07.8 - Other chest pain Comment/Plan: Atypical and appears musculoskeletal. Cardiac enzymes negative. Case Care Discussed with: Patient, Consultants, Nursing Staff, Physical Therapy , Resource Management, Respiratory Therapy, Client Experience Consultant
[2016-08-30] MEDS ORDERED: FLUTICASONE PROPIONATE 16 GM BOT NAS SCH (13:00)
[2016-08-30] MEDS: TRAMADOL 37.5 MG/ACETAMINOPHEN 325 MG TAB PO PRN ×2 (13:27→20:15)
[2016-08-30] MEDS: ASPIRIN 325 MG TAB PO SCH (13:28)
[2016-08-30] MEDS: RALOXIFENE 60 MG TAB PO SCH (13:30)
[2016-08-30] MEDS: RANITIDINE 150 MG TAB PO SCH (13:30)
[2016-08-30] MEDS: VITAMINS, MULTIPLE CAP PO SCH (13:30)
[2016-08-30] MEDS: FLUTICASONE PROPIONATE 16 GM BOT NAS SCH ×2 (13:30→20:14)
--- NOTE | 2016-08-30 14:41 | DIRPT ---
CLINICAL DATA: Fall yesterday with left humerus pain. EXAM: LEFT HUMERUS - 2+ VIEW COMPARISON: None. FINDINGS: Degenerate changes of the acromioclavicular joint and rotator cuff insertion. No acute fracture or dislocation. IMPRESSION: No acute osseous abnormality. Electronically Signed By: Lamberto Mackenzie M.D. On: 08/30/2016 14:39
[2016-08-30] MEDS: TEMAZEPAM 15 MG CAP PO PRN (22:17)
[2016-08-31 05:19] LABS: AUTOMATED BASOPHIL 0.9 % (0-2); AUTOMATED MONOCYTE 11.1 % (3-10); MPV 7.7 fL (7.4-10.4)
[2016-08-31 05:26] LABS: BLOOD UREA NITROGEN 10 MG/DL (7-17); CALCIUM 8.2 MG/DL (8.4-10.2); CALCULATED OSMOLALITY 252 MOs/Kg (270-290); CHLORIDE 98 mEq/L (98-107); GLUCOSE 92 MG/DL (70-99); SODIUM LEVEL 131 mEq/L (137-146)
[2016-08-31] MEDS ORDERED: FLU VACCINE (Afluria) 0.5 ML DOSE IM ONE (08:00)
[2016-08-31] MEDS: TRAMADOL 37.5 MG/ACETAMINOPHEN 325 MG TAB PO PRN ×2 (08:45→17:20)
[2016-08-31] MEDS: FLUTICASONE PROPIONATE 16 GM BOT NAS SCH ×2 (08:45→19:58)
[2016-08-31] MEDS: CARVEDILOL 3.125 MG TAB PO SCH ×2 (08:50→20:00)
[2016-08-31] MEDS: LISINOPRIL 5 MG TAB PO SCH (08:51)
[2016-08-31] MEDS: ASPIRIN 325 MG TAB PO SCH (08:51)
[2016-08-31] MEDS: VITAMINS, MULTIPLE CAP PO SCH (08:52)
[2016-08-31] MEDS: RALOXIFENE 60 MG TAB PO SCH (08:52)
[2016-08-31] MEDS: RANITIDINE 150 MG TAB PO SCH (08:52)
[2016-08-31] MEDS: LACTULOSE 20 GM/30 ML ORAL SOLN PO SCH ×2 (10:45→19:59)
--- NOTE | 2016-08-31 10:49 | GENMEDPROG ---
Chief Complaint: Feels okay. Complains of constipation. Moderate foot and ankle pain. Notes Reviewed: Yes Events from last night noted and discussed with Clinical Staff Current Medication List: Reviewed Currently: Denies: Cough, Wheezing, SEGURA, SOB, Nausea and Vomiting, Abdominal Pain, Chest Pain DVT Prophylaxis: Yes - Physical Examination Vital Signs and I&O: Last Vital Signs Temp 98.8 F 08/31/16 07:38 Pulse 66 08/31/16 09:22 Resp 20 08/31/16 07:38 BP 143/65 08/31/16 07:38 Pulse Ox 94 08/31/16 08:00 Oxygen Pulse Oxygen Saturation 94 O2 Device Room Air Oxygen Flow Rate 2 Fraction of Inspired Oxygen ( FIO2) Intake & Output 08/28/16 08/29/16 08/30/16 08/31/16 23:59 23:59 23:59 23:59 Intake Total 960 240 Output Total 1500 850 Balance -540 -610 Patient's weight 57.47 kg 57.748 kg 58.831 kg General: Alert, Oriented x3, Cooperative, Well appearing, Well nourished HEENT: Normal, PERRLA, EOMI Neck: Non-tender, Full range of motion, Normal Trachea alignment. negative: JVD Lymphatics: Normal. negative: Adenopathy Respiratory: Normal - CTA Cardiovascular: Regular rate and rhythm, No Gallops,Rubs/Murmurs GI: Normal bowel sounds, Soft, Non tender, No hepatospenomegaly Extremities/Musculoskeletal: Normal pulses. negative: Tenderness, Swelling Skin: Warm,Dry and Intact, No rashes, No breakdown, No significant lesion Neurological: Normal speech, Strength at 5/5 X4 ext, Normal tone, Cranial nerves 3-12 NL Psych/Mental Status: Appropriate, Normal Affect, Cooperative Lab/DI/Studies Reviewed: Laboratory Results - last 24 hr 08/31/16 08/31/16 04:15 04:15 WBC 5.0 RBC 4.11 L Hgb 12.8 Hct 37.2 MCV 91 MCH 31.1 MCHC 34.3 RDW 14.0 Plt Count 234 MPV 7.7 Neut % (Auto) 58.0 Lymph % (Auto) 24.0 [place] % (Auto) 11.1 H Eos % (Auto) 6.0 H Baso % (Auto) 0.9 Absolute Neuts (auto) 2.90 Absolute Lymphs (auto) 1.20 Sodium 131 L Potassium 4.2 Chloride 98 Carbon Dioxide 27 Anion Gap 10 BUN 10 Creatinine 0.60 Estimated GFR (MDRD) > 60 Glucose 92 Calculated Osmolality 252 L Calcium 8.2 L - Assessment (1) Hypertensive urgency Acute I16.0 - HYPERTENSIVE URGENCY Comment/Plan: Blood pressures better. Continue current medications and control pain. (2) Closed displaced fracture of left calcaneus Acute S92.002A - UNSP FRACTURE OF LEFT CALCANEUS, INIT FOR CLOS FX Qualifiers: Encounter type: initial encounter Fracture morphology: intra-articular Qualified Code(s): S92.062A - Displaced intraarticular fracture of left calcaneus, initial encounter for closed fracture Comment/Plan: Still moderate pain though some better today. Will need short- term snf facility placement and outpatient follow-up with Orthopedic Trauma per Dr. Segura recommendation (3) Concussion Acute S06.0X9A - CONCUSSION W LOSS OF CONSCIOUSNESS OF UNSP DURATION, INIT Qualifiers: Encounter type: initial encounter Loss of consciousness presence/duration: with LOC of unspecified duration Qualified Code(s): S06.0X9A - Concussion with loss of consciousness of unspecified duration, initial encounter Comment/Plan: Appears stable currently. Monitor (4) Dizziness Acute R42 - DIZZINESS AND GIDDINESS Comment/Plan: Continue medications. (5) Headache Acute R51 - HEADACHE Qualifiers: Headache type: unspecified Headache chronicity pattern: acute headache Intractability: not intractable Qualified Code(s): R51 - Headache Comment/Plan: Fell yesterday. P.r.n. analgesics. Head CT is negative. (6) Chest pain Acute R07.9 - CHEST PAIN, UNSPECIFIED Qualifiers: Chest pain type: other chest pain Qualified Code(s): R07.89 - Other chest pain; R07.8 - Other chest pain Comment/Plan: Atypical and appears musculoskeletal. Cardiac enzymes negative. (7) Constipation Acute K59.00 - CONSTIPATION, UNSPECIFIED Qualifiers: Constipation type: unspecified constipation type Qualified Code(s): K59.00 - Constipation, unspecified Comment/Plan: Likely due to medications and decreased activity from ankle fracture. Schedule Colace and p.r.n. lactulose. Case Care Discussed with: Patient, Nursing Staff, Physical Therapy, Resource Management, Respiratory Therapy, Elevator Worker
[2016-08-31] MEDS: ENOXAPARIN 40 MG/0.4 ML PFS SQ SCH (17:19)
[2016-08-31] MEDS: PANTOPRAZOLE 40 MG TAB PO SCH (17:20)
[2016-08-31] MEDS: ACETAMINOPHEN 325 MG/TAB TABLET PO PRN (18:39)
[2016-08-31] MEDS ORDERED: OXYCODONE HCL 5 MG TABLET ONE (22:52)
[2016-08-31] MEDS: OXYCODONE HCL 5 MG TABLET PO PRN (22:55)
[2016-09-01] MEDS: TEMAZEPAM 15 MG CAP PO PRN (00:22)
[2016-09-01] MEDS: PANTOPRAZOLE 40 MG TAB PO SCH ×2 (06:09→17:10)
[2016-09-01] MEDS: OXYCODONE HCL 5 MG TABLET PO PRN ×3 (07:16→23:23)
[2016-09-01 07:25] LABS: AUTOMATED BASOPHIL 1.1 % (0-2); AUTOMATED EOSINOPHIL 5.4 % (0-5); AUTOMATED LYMPH 17.1 % (17-44); AUTOMATED MONOCYTE 11.1 % (3-10); AUTOMATED NEUTROPHIL 65.3 % (45-76); MPV 7.3 fL (7.4-10.4)
[2016-09-01 07:36] LABS: BLOOD UREA NITROGEN 8 MG/DL (7-17); CALCIUM 8.4 MG/DL (8.4-10.2); CALCULATED OSMOLALITY 256 MOs/Kg (270-290); CHLORIDE 99 mEq/L (98-107); GLUCOSE 92 MG/DL (70-99); SODIUM LEVEL 134 mEq/L (137-146)
[2016-09-01] MEDS: ASPIRIN 325 MG TAB PO SCH (08:05)
[2016-09-01] MEDS: CARVEDILOL 3.125 MG TAB PO SCH ×2 (08:05→20:12)
[2016-09-01] MEDS: LACTULOSE 20 GM/30 ML ORAL SOLN PO SCH ×2 (08:05→20:13)
[2016-09-01] MEDS: RALOXIFENE 60 MG TAB PO SCH (08:06)
[2016-09-01] MEDS: FLUTICASONE PROPIONATE 16 GM BOT NAS SCH ×2 (08:06→20:14)
[2016-09-01] MEDS: ONDANSETRON HCL 4 MG/2 ML VIAL IV PRN (08:51)
[2016-09-01] MEDS: RANITIDINE 150 MG TAB PO SCH (10:43)
[2016-09-01] MEDS: LISINOPRIL 5 MG TAB PO SCH (10:43)
[2016-09-01] MEDS: VITAMINS, MULTIPLE CAP PO SCH (11:56)
--- NOTE | 2016-09-01 14:46 | GENMEDPROG ---
Chief Complaint: Constipation better. Still with moderate pain. No chest pain or shortness of breath. Notes Reviewed: Yes Events from last night noted and discussed with Clinical Staff Current Medication List: Reviewed Currently: Denies: Cough, Wheezing, SEGURA, SOB, Nausea and Vomiting, Abdominal Pain, Chest Pain DVT Prophylaxis: Yes - Physical Examination Vital Signs and I&O: Last Vital Signs Temp 97.9 F 09/01/16 05:56 Pulse 67 09/01/16 05:56 Resp 18 09/01/16 05:56 BP 128/60 09/01/16 05:56 Pulse Ox 94 09/01/16 09:38 Oxygen Pulse Oxygen Saturation 94 O2 Device Room Air Oxygen Flow Rate 2 Fraction of Inspired Oxygen ( FIO2) Intake & Output 08/29/16 08/30/16 08/31/16 09/01/16 23:59 23:59 23:59 23:59 Intake Total 960 720 180 Output Total 1500 2100 Balance -540 -1380 180 Patient's weight 57.47 kg 57.748 kg 57.805 kg 58.786 kg General: Alert, Oriented x3, Cooperative, Well appearing, Well nourished HEENT: Normal, PERRLA, EOMI Neck: Non-tender, Full range of motion, Normal Trachea alignment. negative: JVD Lymphatics: Normal. negative: Adenopathy Respiratory: Normal - CTA Cardiovascular: Regular rate and rhythm, No Gallops,Rubs/Murmurs GI: Normal bowel sounds, Soft, Non tender, No hepatospenomegaly Extremities/Musculoskeletal: Normal pulses. negative: Tenderness, Swelling Skin: Warm,Dry and Intact, No rashes, No breakdown, No significant lesion Neurological: Normal speech, Strength at 5/5 X4 ext, Normal tone, Cranial nerves 3-12 NL Psych/Mental Status: Appropriate, Normal Affect, Cooperative Lab/DI/Studies Reviewed: Laboratory Results - last 24 hr 09/01/16 09/01/16 06:40 06:40 WBC 4.3 RBC 4.17 L Hgb 12.9 Hct 37.9 MCV 91 MCH 30.9 MCHC 34.0 RDW 13.9 Plt Count 233 MPV 7.3 L Neut % (Auto) 65.3 Lymph % (Auto) 17.1 [place] % (Auto) 11.1 H Eos % (Auto) 5.4 H Baso % (Auto) 1.1 Absolute Neuts (auto) 2.80 Absolute Lymphs (auto) 0.73 Sodium 134 L Potassium 4.6 Chloride 99 Carbon Dioxide 30 Anion Gap 10 BUN 8 Creatinine 0.60 Estimated GFR (MDRD) > 60 Glucose 92 Calculated Osmolality 256 L Calcium 8.4 - Assessment (1) Hypertensive urgency Acute I16.0 - HYPERTENSIVE URGENCY Comment/Plan: Blood pressures better. Continue current medications and control pain. (2) Closed displaced fracture of left calcaneus Acute S92.002A - UNSP FRACTURE OF LEFT CALCANEUS, INIT FOR CLOS FX Qualifiers: Encounter type: initial encounter Fracture morphology: intra-articular Qualified Code(s): S92.062A - Displaced intraarticular fracture of left calcaneus, initial encounter for closed fracture Comment/Plan: Still moderate pain though some better today. Will need short- term half-way facility placement and outpatient follow-up with Orthopedic Trauma per Dr. Segura recommendation (3) Concussion Acute S06.0X9A - CONCUSSION W LOSS OF CONSCIOUSNESS OF UNSP DURATION, INIT Qualifiers: Encounter type: initial encounter Loss of consciousness presence/duration: with LOC of unspecified duration Qualified Code(s): S06.0X9A - Concussion with loss of consciousness of unspecified duration, initial encounter Comment/Plan: Appears stable currently. Monitor (4) Dizziness Acute R42 - DIZZINESS AND GIDDINESS Comment/Plan: Continue medications. (5) Headache Acute R51 - HEADACHE Qualifiers: Headache type: unspecified Headache chronicity pattern: acute headache Intractability: not intractable Qualified Code(s): R51 - Headache Comment/Plan: Fell yesterday. P.r.n. analgesics. Head CT is negative. (6) Chest pain Acute R07.9 - CHEST PAIN, UNSPECIFIED Qualifiers: Chest pain type: other chest pain Qualified Code(s): R07.89 - Other chest pain; R07.8 - Other chest pain Comment/Plan: Atypical and appears musculoskeletal. Cardiac enzymes negative. (7) Constipation Acute K59.00 - CONSTIPATION, UNSPECIFIED Qualifiers: Constipation type: unspecified constipation type Qualified Code(s): K59.00 - Constipation, unspecified Comment/Plan: Better today. Continue medications. Case Care Discussed with: Patient, Consultants, Nursing Staff, Resource Management, Respiratory Therapy, Doctor Of Osteopathy
[2016-09-01] MEDS: ENOXAPARIN 40 MG/0.4 ML PFS SQ SCH (17:10)
[2016-09-01] MEDS: TRAMADOL 37.5 MG/ACETAMINOPHEN 325 MG TAB PO PRN (20:18)
[2016-09-02] MEDS: PANTOPRAZOLE 40 MG TAB PO SCH ×2 (06:00→17:25)
[2016-09-02] MEDS: OXYCODONE HCL 5 MG TABLET PO PRN ×2 (06:00→17:15)
[2016-09-02] MEDS: TRAMADOL 37.5 MG/ACETAMINOPHEN 325 MG TAB PO PRN ×2 (08:06→20:14)
[2016-09-02] MEDS: CARVEDILOL 3.125 MG TAB PO SCH ×2 (09:25→20:14)
[2016-09-02] MEDS: ASPIRIN 325 MG TAB PO SCH (09:25)
[2016-09-02] MEDS: LACTULOSE 20 GM/30 ML ORAL SOLN PO SCH ×2 (09:25→20:14)
[2016-09-02] MEDS: FLUTICASONE PROPIONATE 16 GM BOT NAS SCH ×2 (09:25→20:14)
[2016-09-02] MEDS: RALOXIFENE 60 MG TAB PO SCH (09:27)
[2016-09-02] MEDS: LISINOPRIL 5 MG TAB PO SCH (09:28)
[2016-09-02] MEDS: RANITIDINE 150 MG TAB PO SCH (09:28)
[2016-09-02] MEDS: VITAMINS, MULTIPLE CAP PO SCH (11:29)
--- NOTE | 2016-09-02 15:55 | GENMEDPROG ---
Chief Complaint: Doing well. Still moderate pain. No chest pain or shortness of breath. Notes Reviewed: Yes Events from last night noted and discussed with Clinical Staff Current Medication List: Reviewed Currently: Denies: Cough, Wheezing, SEGURA, SOB, Nausea and Vomiting, Abdominal Pain, Chest Pain DVT Prophylaxis: Yes - Physical Examination Vital Signs and I&O: Last Vital Signs Temp 98.4 F 09/02/16 14:04 Pulse 64 09/02/16 14:04 Resp 18 09/02/16 14:04 BP 121/58 L 09/02/16 14:04 Pulse Ox 95 09/02/16 14:04 Oxygen Pulse Oxygen Saturation 95 O2 Device Room Air Oxygen Flow Rate 2 Fraction of Inspired Oxygen ( FIO2) Intake & Output 08/30/16 08/31/16 09/01/16 09/02/16 23:59 23:59 23:59 23:59 Intake Total 960 720 540 440 Output Total 1500 2100 400 500 Balance -540 -1380 140 -60 Patient's weight 57.748 kg 57.805 kg 58.786 kg 58.258 kg General: Alert, Oriented x3, Cooperative, Well appearing, Well nourished HEENT: Normal, PERRLA, EOMI Neck: Non-tender, Full range of motion, Normal Trachea alignment. negative: JVD Lymphatics: Normal. negative: Adenopathy Respiratory: Normal - CTA Cardiovascular: Regular rate and rhythm, No Gallops,Rubs/Murmurs GI: Normal bowel sounds, Soft, Non tender, No hepatospenomegaly Extremities/Musculoskeletal: Normal pulses. negative: Tenderness, Swelling Skin: Warm,Dry and Intact, No rashes, No breakdown, No significant lesion Neurological: Normal speech, Strength at 5/5 X4 ext, Normal tone, Cranial nerves 3-12 NL Psych/Mental Status: Appropriate, Normal Affect, Cooperative Lab/DI/Studies Reviewed: Laboratory Results - last 24 hr 09/01/16 17:56 POC Capillary Glucose 90 - Assessment (1) Closed displaced fracture of left calcaneus Acute S92.002A - UNSP FRACTURE OF LEFT CALCANEUS, INIT FOR CLOS FX Qualifiers: Encounter type: initial encounter Fracture morphology: intra-articular Qualified Code(s): S92.062A - Displaced intraarticular fracture of left calcaneus, initial encounter for closed fracture Comment/Plan: Overall pain improving. Will need short-term nursing home facility placement and outpatient follow-up with Dr. Morrison with Orthopedic Trauma per Dr. Segura recommendation (2) Hypertensive urgency Acute I16.0 - HYPERTENSIVE URGENCY Comment/Plan: Blood pressures better. Continue current medications and control pain. (3) Concussion Acute S06.0X9A - CONCUSSION W LOSS OF CONSCIOUSNESS OF UNSP DURATION, INIT Qualifiers: Encounter type: initial encounter Loss of consciousness presence/duration: with LOC of unspecified duration Qualified Code(s): S06.0X9A - Concussion with loss of consciousness of unspecified duration, initial encounter Comment/Plan: Appears stable currently. Monitor (4) Dizziness Acute R42 - DIZZINESS AND GIDDINESS Comment/Plan: Continue medications. (5) Headache Acute R51 - HEADACHE Qualifiers: Headache type: unspecified Headache chronicity pattern: acute headache Intractability: not intractable Qualified Code(s): R51 - Headache Comment/Plan: Fell yesterday. P.r.n. analgesics. Head CT is negative. (6) Chest pain Acute R07.9 - CHEST PAIN, UNSPECIFIED Qualifiers: Chest pain type: other chest pain Qualified Code(s): R07.89 - Other chest pain; R07.8 - Other chest pain Comment/Plan: Atypical and appears musculoskeletal. Cardiac enzymes negative. (7) Constipation Acute K59.00 - CONSTIPATION, UNSPECIFIED Qualifiers: Constipation type: unspecified constipation type Qualified Code(s): K59.00 - Constipation, unspecified Comment/Plan: Better today. Continue medications. Case Care Discussed with: Patient, Nursing Staff, Physical Therapy, Resource Management, Respiratory Therapy, Office Electrician
[2016-09-02] MEDS: ENOXAPARIN 40 MG/0.4 ML PFS SQ SCH (17:25)
[2016-09-02] MEDS: hydrALAZINE 20 MG/ML VIAL IV PRN (22:05)
[2016-09-03] MEDS: PANTOPRAZOLE 40 MG TAB PO SCH (05:23)
[2016-09-03] MEDS: OXYCODONE HCL 5 MG TABLET PO PRN ×2 (05:24→09:24)
[2016-09-03 07:27] VITALS: BMI 21.4
[2016-09-03] MEDS: LACTULOSE 20 GM/30 ML ORAL SOLN PO SCH (09:21)
[2016-09-03] MEDS: RALOXIFENE 60 MG TAB PO SCH (09:21)
[2016-09-03] MEDS: FLUTICASONE PROPIONATE 16 GM BOT NAS SCH (09:21)
[2016-09-03] MEDS: ASPIRIN 325 MG TAB PO SCH (09:21)
[2016-09-03] MEDS: CARVEDILOL 3.125 MG TAB PO SCH (09:21)
[2016-09-03] MEDS: LISINOPRIL 5 MG TAB PO SCH (09:22)
[2016-09-03] MEDS: RANITIDINE 150 MG TAB PO SCH (09:22)
[2016-09-03] MEDS: VITAMINS, MULTIPLE CAP PO SCH (11:57)
[2016-09-03] MEDS: TRAMADOL 37.5 MG/ACETAMINOPHEN 325 MG TAB PO PRN (11:57)
--- NOTE | 2016-09-03 12:33 | PCM.DCS92 ---
- Final/Secondary Discharge Diagnosis (1) Hypertensive urgency Resolved I16.0 - HYPERTENSIVE URGENCY Present on Admission: Yes Comment: Blood pressures better. Continue current medications and control pain. Blood pressure under control (2) Calcaneal fracture Acute S92.009A - UNSP FRACTURE OF UNSP CALCANEUS, INIT FOR CLOS FX Present on Admission: Yes initial encounter unspecified portion of calcaneus closed displaced left S92.002A - Unspecified fracture of left calcaneus, initial encounter for closed fracture Plan/Goal/Comment: Follow by Ortho (3) Osteoporosis Chronic M81.0 - AGE-RELATED OSTEOPOROSIS W/O CURRENT PATHOLOGICAL FRACTURE Present on Admission: Yes Plan/Goal/Comment: Continue calcium and vitamin-D (4) Pain of left heel Acute M79.672 - PAIN IN LEFT FOOT Present on Admission: Yes Plan/Goal/Comment: Continue Tylenol and Oxy IR. (5) Constipation Chronic K59.00 - CONSTIPATION, UNSPECIFIED Present on Admission: Yes unspecified constipation type K59.00 - Constipation, unspecified Comment: Better today. Continue medications. Continue bowel regimen [facility]charge Disposition[facility] Discharge Condition: Improved Cognitive Discharge Status: Unimpaired Fuctional Discharge Status: Wheelchair Assistance Physician Follow up/Referrals: None,No Provider [Family Provider] - One Week New Prescriptions: Aspirin [Aspirin EC] 325 mg PO DAILY #90 tablet. Carvedilol [Coreg] 6.25 mg PO BID #60 tab Lisinopril 10 mg PO DAILY #90 tablet Calcium Carbonate + Vitamin D [Oscal with Vitamin D] 500 mg PO BID #120 tab Oxycodone Immediate Release [Oxycodone Immediate Release (OxyIR)] 5 mg PO Q4H PRN #60 tab PRN Reason: Pain Sennosides [Senokot] 2 tab PO QHS #100 tablet Tramadol HCl 50 mg PO QID PRN #120 tablet PRN Reason: Pain Acetaminophen [Tylenol] 650 mg PO Q6 #120 tablet O2 Device: Room Air Diet at Discharge: Heart Healthy, Low Salt, High Fiber Activity: Limited Call Office For: Worsening Symptoms, Fever over 101 F Discontinue use of:: Alcohol, All Illegal Substances, All Types of Tobacco - DC Summary Notes Hospital Course Note:: Discharge summary on patient named MIRELA GONZALEZ admitted to [facility] on 08/29/16 by Bakari Olivier MD. Date of discharge is []. [age] white female presented emergency room on August 29 for evaluation of severe left heel pain which she has developed after sustaining a fall on her back porch. Please refer to the admission for further details. ED workup was undertaken patient was found to have displaced comminuted fracture of calcaneus on the left. Head CT showed no evidence of traumatic injury, chronic ischemic changes in the white matter and basal ganglia similar to prior examination. Chest x-ray was negative. Patient blood pressure was elevated with initial readings being greater than 200 systolic. She was started on Coreg and lisinopril with good blood pressure control. Patient was seen consultation by Orthopedics who has recommended leg elevation, ice packs nonweightbearing on the left and referral to wound care specialist Dr. Morrison. Patient was seen evaluated by PT OT and remain nonweightbearing on the left. During hospital stay patient has remained hemodynamically stable and again blood pressure remained under good control. Given the fact the patient lives alone and has no immediate family and given the inability to care for self arrangements were made for her transfer to local senior living facility for PT OT. Her labs were monitored and remained normal throughout the hospitalization. It was felt that by September 03 patient has reached maximum benefit of inpatient therapy and on that day she is being transferred to senior living facility for PT OT. Total Time: 40 min . Code: 15547 (>30min.) - Physical Exam Vital Signs: Last Vital Signs Temp 97.5 F 09/03/16 04:00 Pulse 73 09/03/16 04:00 Resp 18 09/03/16 04:00 BP 157/66 09/03/16 04:00 Pulse Ox 95 09/03/16 08:59 Oxygen Pulse Oxygen Saturation 95 O2 Device Room Air Oxygen Flow Rate 2 Fraction of Inspired Oxygen ( FIO2) Constitutional: No apparent distress, Alert Oriented to: Time, Person, Place - HEENT Head: Normal Eye: Normal Oropharynx: Normal ENT EAC: Normal TMJ: Normal Nose: No Symptoms Reported - Respiratory/Cardiovascular Respiratory: Normal - CTA, Diminished, Rhonchi Cardiovascular: Normal, Systolic murmur - GI Auscultation: Normal Palpation: Normal Tenderness: Non tender Rectal Exam: Deferred - Exam Deferred: Yes - Musculoskeletal Back: Normal Extremities: Edema, Other (Examination of the patient's left lower extremity she does have a well-padded posterior splint in place. She is able to flex and extend all toes. No significant pain with passive range of motion of her toes. Subjective sensation to light touch intact distally L4-S1. She has palpable dorsalis pedis and posterior tibial pulses distally. Compartments are soft without evidence of compartment syndrome. Passive range of motion of the left knee 0-120 degrees. No effusion or tenderness. Negative hip logroll test bilaterally for any reproducible pain. Patient does have a small area of ecchymosis and tenderness palpation over the deltoid of the left shoulder. Active range of motion of her left shoulder is limited by pain. She does have full passive range of motion, however painful. Left elbow without tenderness or effusion. No crepitance. Full painless flexion and extension of the left wrist distally. All remaining bony prominences of bilateral upper and lower extremities palpated without tenderness, step-off or deformity) - Integumentary Skin: Normal, Warm, Dry Lymphatics: Normal. negative: Adenopathy - Neurologic Memory Impaired: Normal Motor Function: Abnormal Cranial Nerve: Normal Cerebellar: Normal Mood Description: Normal Thought: Coherent Perception: Normal, Other (some confusion post fall)
[2016-09-03 14:05] VITALS: BP 139/57; PULSE 76; TEMP 99.1
== END 2016-09-03 16:26 | DRG 305 ==
LOC: ED 14:02 → PCU 21:47 → MPS3 08-31 20:36
PROVIDERS: ADMIT Internal Medicine; ATTEND Internal Medicine
DX: I16.0 Hypertensive urgency (principal); K21.9 Gastro-esophageal reflux disease without esophagitis; M81.0 Age-related osteoporosis without current pathological fracture; R51 Headache; R07.89 Other chest pain; S92.002A Unspecified fracture of left calcaneus, initial encounter for closed fracture; R42 Dizziness and giddiness; K59.00 Constipation, unspecified; X58.XXXA Exposure to other specified factors, initial encounter; I10 Essential (primary) hypertension; Z23 Encounter for immunization; Z86.73 Personal history of transient ischemic attack (TIA), and cerebral infarction without residual deficits; Z79.899 Other long term (current) drug therapy; W17.89XA Other fall from one level to another, initial encounter
CPT/HCPCS: 29515; 36415; 70450; 80048; 80053; 80061; 81001; 82550; 82962; 83874; 84484; 85025; 85027; 90471; 90656; 93005; 96372; 96374; 96375; 99284; J0360; J1170; J1650; J2060; J2405; J3490